=== PATIENT | female | born 1985 | race Caucasian/White ===

== ENCOUNTER 2020-03-04 10:11 | Emergency (ER) | payer BC, OTHER ==
--- NOTE | 2020-03-04 12:04 | ER ---
Nurse's Notes [facility] Name: Anna Up Age: 34 yrs Sex: Female : 1985 Arrival Date: 03/04/2020 Time: 10:16 Bed 17 Private MD: out of town, doctor Diagnosis: Fecal impaction;Low back pain Presentation: 03/04 10:33 Chief complaint: Patient states: had a CT yesterday and is impacted, was told if she iw hadn't passed stool in 24 hours or has increasing pain to come to ER, was seen by a doctor out of [place]. Coronavirus screen: Proceed with normal triage. Patient denies a cough. Patient denies shortness of breath or difficulty breathing. Patient denies measured and/or subjective temperature greater than 100.4F prior to today's visit. Patient denies travel on a cruise ship or to a country the [facility] currently lists as an affected area. Patient denies contact with known and/or suspected case of COVID-19. Ebola Screen: Patient negative for fever greater than or equal to 101.5 degrees Fahrenheit, and additional compatible Ebola Virus Disease symptoms Patient denies exposure to infectious person. Patient denies travel to an Ebola-affected area in the 21 days before illness onset. No symptoms or risks identified at this time. Initial Sepsis Screen: Does the patient meet any 2 criteria? No. Patient's initial sepsis screen is negative. Does the patient have a suspected source of infection? No. Patient's initial sepsis screen is negative. Risk Assessment: Do you want to hurt yourself or someone else? Patient reports no desire to harm self or others. Onset of symptoms was February 29, 2020. 10:33 Method Of Arrival: Ambulatory iw 10:33 Acuity: MANDY 3 iw Triage Assessment: 10:47 General: Appears in no apparent distress. comfortable, obese, Behavior is cooperative, bp appropriate for age, anxious. Pain: Complains of pain in abdomen. EENT: No deficits noted. Neuro: No deficits noted. Cardiovascular: No deficits noted. Respiratory: No deficits noted. GI: Reports constipation. : No signs and/or symptoms were reported regarding the genitourinary system. Derm: No deficits noted. Musculoskeletal: No deficits noted. 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 - Social history:: Smoking status: Patient denies any tobacco usage or history of. - Family history:: not pertinent. Screenin:48 Abuse screen: Denies threats or abuse. Denies injuries from another. Nutritional bp screening: No deficits noted. Tuberculosis screening: No symptoms or risk factors identified. Fall Risk None identified. Assessment: 10:48 General: SEE TRIAGE NOTE. bp 11:34 Reassessment: SOAP SUDS ENEMA IN PROCESS. PT TBDC AFTER COMPLETION. bp 11:44 Reassessment: PT HAD SUCCESSFUL BM, PROVIDER NOTIFIED. bp 12:10 Reassessment: D/C ON HOLD FOR REMAINING 500CC SOAP SUDS ENEMA. bp 12:46 Reassessment: Patient appears in no apparent distress at this time. Patient and/or iw family updated on plan of care and expected duration. Pain level reassessed. Patient is alert, oriented x 3, equal unlabored respirations, skin warm/dry/pink. Vital Signs: 10:33 BP 130 / 90; Pulse 72; Resp 16; Temp 97.7; Pulse Ox 100% on R/A; Weight 72.57 kg; iw Height 5 ft. 10 in. (177.80 cm); Pain 7/10; 11:48 BP 127 / 85; Pulse 78; Resp 16; Pulse Ox 100% ; bp 10:33 Body Mass Index 22.96 (72.57 kg, 177.80 cm) iw ED Course: 10:16 Patient arrived in ED. mr 10:16 out of town, doctor is Private Physician. mr 10:35 Triage completed. iw 10:37 Arm band placed on. iw 10:46 Malcolm Reynoso, RN is Primary Nurse. bp 10:46 Tyrese De Jesus DO is Attending Physician. ms3 10:48 Patient has correct armband on for positive identification. Bed in low position. Call bp light in reach. Side rails up X2. 11:[address] Arroyo and connected with Dr. De Jesus for patient eb consultation. 11:02 Warm blanket given. Pulse ox on. NIBP on. 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 mh5 11:35 Soap suds enema given. 5 12:46 Patient did not have IV access during this emergency room visit. iw Administered Medications: No medications were administered Outcome: 12:04 Discharge ordered by MD. ms3 12:46 Discharged to home ambulatory. iw 12:46 Condition: good 12:46 Discharge instructions given to patient, Instructed on discharge instructions, follow up and referral plans. medication usage, Demonstrated understanding of instructions, follow-up care, medications, Prescriptions given X 1. 12:46 Patient left the ED. iw Signatures: Christianne Kirk Irene, RN RN Tenisha Bo [facility] Malcolm Reynoso, RN RN Betty Alex Marcus, DO DO ms3
--- NOTE | 2020-03-04 12:05 | EDPHYS ---
Physician Documentation [facility] Name: Anna Up Age: 34 yrs Sex: Female : 1985 Arrival Date: 03/04/2020 Time: 10:16 Bed 17 Private MD: out of town, doctor ED Physician Tyrese De Jesus HPI: 03/04 11:04 This 34 yrs old Female presents to ER via Ambulatory with complaints of ms3 Constipation. 11:04 34 year old female presents stating she had a CT scan showing fecal impaction performed ms3 yesterday. Her provider, Mae Gonzalez, suggested she go to the ED for continued constipation and back pain.. Onset: The symptoms/episode began/occurred 1 month(s) ago. Severity of symptoms: in the emergency department the symptoms are unchanged. 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 - Social history:: Smoking status: Patient denies any tobacco usage or history of. - Family history:: not pertinent. ROS: 11:04 Constitutional: Negative for fever, and chills. Eyes: Negative for injury, pain, ms3 redness, and discharge, Neck: Negative for injury, pain, and swelling, Cardiovascular: Negative for chest pain, and palpitations. Respiratory: Negative for shortness of breath, cough, wheezing, and pleuritic chest pain, Abdomen/GI: Negative for abdominal pain, nausea, vomiting, diarrhea, and constipation, Back: Negative for injury and pain, MS/Extremity: Negative for injury and deformity, Skin: Negative for injury, rash, and discoloration. 11:04 Back: Positive for Negative for injury or acute deformity, decreased range of motion. Exam: 11:04 Constitutional: This is a well developed, well nourished patient who is awake, alert, ms3 and in no acute distress. Head/Face: Normocephalic, atraumatic. Eyes: Pupils equal round and reactive to light, extra-ocular motions intact. Lids and lashes normal. Conjunctiva and sclera are non-icteric and not injected. Cornea within normal limits. Periorbital areas with no swelling, redness, or edema. Neck: Trachea midline, no cervical lymphadenopathy. Supple, full range of motion without nuchal rigidity, or vertebral point tenderness. No Meningismus. Chest/axilla: Normal chest wall appearance and motion. Nontender with no deformity. Cardiovascular: Regular rate and rhythm with a normal S1 and S2. No gallops, murmurs, or rubs. Normal PMI, no JVD. No pulse deficits. Respiratory: Lungs have equal breath sounds bilaterally, clear to auscultation and percussion. No rales, rhonchi or wheezes noted. No increased work of breathing, no retractions or nasal flaring. Abdomen/GI: Soft, non-tender, with normal bowel sounds. No distension or tympany. No guarding or rebound. No evidence of tenderness throughout. Back: No spinal tenderness. No costovertebral tenderness. Full range of motion. 11:04 Abdomen/GI: Rectal exam: is unremarkable, rectal tone normal, Stool: the exam is chaperoned by the nurse, Empty vault. Vital Signs: 10:33 BP 130 / 90; Pulse 72; Resp 16; Temp 97.7; Pulse Ox 100% on R/A; Weight 72.57 kg; iw Height 5 ft. 10 in. (177.80 cm); Pain 7/10; 11:48 BP 127 / 85; Pulse 78; Resp 16; Pulse Ox 100% ; bp 10:33 Body Mass Index 22.96 (72.57 kg, 177.80 cm) iw MDM: 10:52 Patient medically screened. ms3 11:04 Data reviewed: diagnostic data from outside facility, Reviewed outside Abd/ Pelvis CT ms3 report that showed fecal impaction.. 12:01 Counseling: I had a detailed discussion with the patient and/or guardian regarding: the ms3 historical points, exam findings, and any diagnostic results supporting the discharge/admit diagnosis, the need for outpatient follow up, a family practitioner, to return to the emergency department if symptoms worsen or persist or if there are any questions or concerns that arise at home. ED course: Pt had liquid bowel movement after soap suds enema. Will give pt additional 500 ml of enema. Discussed GoLytle with pt and she agrees with plan. Pt to follow up with her PMD in 2-3 days. Pt understands/ agrees with plan. All questions answered. Return precautions discussed. Pt a/o x4, nad, non-toxic, ambulatory in ED, no neuro deficits.. 03/04 11:02 Order name: Brandyn. Order: Soap Suds enema; Complete Time: 11:35 ms3 Administered Medications: No medications were administered Disposition: 03/04/20 12:04 Discharged to Home. Impression: Fecal impaction, Low back pain. - Condition is Stable. - Discharge Instructions: Fecal Impaction. - Prescriptions for Golytely - take 240 milliliter by ORAL route every 10 minutes for 1 day; 4 Liter. - Medication Reconciliation Form, Thank You Letter, Antibiotic Education, Prescription Opioid Use form. - Follow up: Private Physician; When: 2 - 3 days; Reason: Re-evaluation by your physician. Signatures: Zari Villegas RN RN iw Tyrese De Jesus DO DO ms3 Corrections: (The following items were deleted from the chart) 12:46 12:04 03/04/2020 12:04 Discharged to Home. Impression: Fecal impaction; Low back pain. iw Condition is Stable. Forms are Medication Reconciliation Form, Thank You Letter, Antibiotic Education, Prescription Opioid Use. Follow up: Private Physician; When: 2 - 3 days; Reason: Re-evaluation by your physician. ms3
[2020-03-04 12:53] VITALS: TEMP 97.7; O2SAT 100
[2020-03-04 12:54] VITALS: BP 127/85
== END 2020-03-04 12:46 | disposition home or self-care (01) ==
LOC: ER 10:11
DX: K56.41 Fecal impaction (principal); E03.9 Hypothyroidism, unspecified; Z88.0 Allergy status to penicillin; Z88.1 Allergy status to other antibiotic agents; Z91.048 Other nonmedicinal substance allergy status
CPT/HCPCS: 99284

== ENCOUNTER 2021-06-17 20:41 | Emergency (ER) | payer BC ==
--- NOTE | 2021-06-17 22:11 | RAD REPORT ---
EXAM DESCRIPTION: RAD - Foot Left 3 View - 06/17/2021 10:01 pm CLINICAL HISTORY: PAIN COMPARISON: No comparisons FINDINGS: No left foot fractures identified. No malalignment. There is some nonspecific irregularity of the medial anterior aspect of the navicular which this is felt to be related to chronic degenerat royce changes. IMPRESSION: No left foot fracture identified.
--- NOTE | 2021-06-18 01:12 | ER ---
Nurse's Notes [facility] Name: Anna Up Age: 35 yrs Sex: Female : 1985 Arrival Date: 06/17/2021 Time: 20:42 Bed 10 Private MD: Diagnosis: Sprain of foot-left Presentation: 06/17 21:19 Chief complaint: Patient states: Left foot pain. Coronavirus screen: Client denies kg travel out of the [place] in the last 14 days. At this time, unable to obtain information related to travel outside the [place] At this time, the client does not indicate any symptoms associated with coronavirus-19. Ebola Screen: Patient negative for fever greater than or equal to 101.5 degrees Fahrenheit, and additional compatible Ebola Virus Disease symptoms Patient denies exposure to infectious person. Patient denies travel to an Ebola-affected area in the 21 days before illness onset. Initial Sepsis Screen: Does the patient meet any 2 criteria? No. Patient's initial sepsis screen is negative. Does the patient have a suspected source of infection? No. Patient's initial sepsis screen is negative. Risk Assessment: Do you want to hurt yourself or someone else? Patient reports no desire to harm self or others. Onset of symptoms was June 17, 2021 at 20:00. 21:19 Method Of Arrival: Wheelchair kg 21:19 Acuity: MANDY 4 kg Triage Assessment: 21:20 General: Appears in no apparent distress. Behavior is calm, cooperative, appropriate kg for age, quiet. Pain: Complains of pain in left foot. Musculoskeletal: Reports numbness in left foot pain in left foot Pain is 6 out of 10 on a pain scale. Injury Description: Pt was playing volleyball and dove to get a ball and fell hurting her foot. 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 - Social history:: Smoking status: Patient denies any tobacco usage or history of. Patient uses alcohol, occasionally. Screenin:20 Abuse screen: Denies threats or abuse. Denies injuries from another. Nutritional kg screening: No deficits noted. Tuberculosis screening: No symptoms or risk factors identified. Fall Risk None identified. Assessment: 06/18 01:35 Pain: Complains of pain in right foot. ms4 01:36 Neuro: No deficits noted. Cardiovascular: No deficits noted. Respiratory: No deficits ms4 noted. 01:36 Reassessment: Patient appears in no apparent distress at this time. No changes from ms4 previously documented assessment. Patient and/or family updated on plan of care and expected duration. Pain level reassessed. General: Appears in no apparent distress. Vital Signs: 06/17 21:19 BP 103 / 67; Pulse 82; Resp 20; Temp 98.7(O); Pulse Ox 100% on R/A; Weight 74.39 kg kg (R); Height 5 ft. 10 in. (177.80 cm) (R); Pain 6/10; 21:19 Body Mass Index 23.53 (74.39 kg, 177.80 cm) kg ED Course: 20:42 Patient arrived in ED. as 21:20 Triage completed. kg 21:20 Arm band placed on left wrist. kg 21:23 No provider procedures requiring assistance completed. kg 22:01 XRAY Foot LEFT 3 View In Process Unspecified. EDMS 06/18 00:23 Pop Higuera PA is PHCP. cp 00:23 Patrice Birch MD is Attending Physician. cp 01:11 Rene Mclean MD is Referral Physician. cp 01:35 Patient has correct armband on for positive identification. ms4 01:35 Patient did not have IV access during this emergency room visit. ms4 Administered Medications: 01:32 Drug: Ibuprofen 800 mg Route: PO; ms4 01:32 Follow up: Response: No adverse reaction ms4 01:32 Drug: Tylenol 1000 mg Route: PO; ms4 01:32 Follow up: Response: No adverse reaction ms4 Outcome: 01:12 Discharge ordered by . cp 01:35 Discharged to home ambulatory, with crutches. ms4 01:35 Condition: stable 01:35 Discharge instructions given to patient, Instructed on discharge instructions, follow up and referral plans. Demonstrated understanding of instructions, follow-up care, medications, Prescriptions given X 1. 01:50 Patient left the ED. ms4 Signatures: Dispatcher [employer] EDTabby Schwab Corey, PA PA cp Graham, Kristen, RN RN kg Nubia Vargas RN RN ms4 Corrections: (The following items were deleted from the chart) 06/17 21:25 21:23 Home Meds: lactulose 10 gram/15 mL (15 mL) Oral soln; kg kg
--- NOTE | 2021-06-18 01:12 | EDPHYS ---
Physician Documentation [facility] Name: Anna Up Age: 35 yrs Sex: Female : 1985 Arrival Date: 06/17/2021 Time: 20:42 Bed 10 Private MD: ED Physician Patrice Birch HPI: 06/18 01:00 This 35 yrs old Female presents to ER via Wheelchair with complaints of Foot cp Injury. 01:00 The patient presents with an injury, pain, that is acute, numbness. The complaints cp affect the dorsum of left foot. Context: resulted from playing sports, while playing volleyball. Onset: The symptoms/episode began/occurred just prior to arrival. Patient reports she dove to strike a ball causing injury to her left foot. She believes she hyperflexed her left foot causing injury. Patient was seated in wheelchair and brought back. Reports difficulty bearing weight. Patient reports a head athletic trainer was on scene who reports that he felt like he relocated the bones in her foot.. 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 - Social history:: Smoking status: Patient denies any tobacco usage or history of. Patient uses alcohol, occasionally. ROS: 06/18 01:05 MS/extremity: Positive for pain, paresthesias, of the dorsum of left foot, Negative for cp decreased range of motion, deformity. 01:05 Constitutional: Negative for body aches, chills, fever. cp 01:05 Neck: Negative for pain with movement, pain at rest, stiffness. 01:05 Cardiovascular: Negative for chest pain. 01:05 Respiratory: Negative for cough, shortness of breath, wheezing. 01:05 Abdomen/GI: Negative for abdominal pain. 01:05 Back: Negative for pain at rest, pain with movement. 01:05 All other systems are negative. Exam: 01:07 Constitutional: The patient appears in no acute distress, alert, awake, well developed, cp well nourished, uncomfortable. 01:07 Head/Face: Normocephalic, atraumatic. cp 01:07 Neck: ROM/movement: is normal, is supple, without pain, no range of motions limitations. 01:07 Chest/axilla: Inspection: normal. 01:07 Cardiovascular: Rate: normal. 01:07 Respiratory: the patient does not display signs of respiratory distress, Respirations: normal. 01:07 Back: pain, is absent. 01:07 Musculoskeletal/extremity: Extremities: grossly normal except: noted in the dorsum of left foot: pain, swelling, tenderness, noted to dorsum of right foot, There is no evidence of deformity, injury to Achilles tendon, Pulses: noted to be 2+ in the left dorsalis pedis artery. Vital Signs: 06/17 21:19 BP 103 / 67; Pulse 82; Resp 20; Temp 98.7(O); Pulse Ox 100% on R/A; Weight 74.39 kg kg (R); Height 5 ft. 10 in. (177.80 cm) (R); Pain 6/10; 21:19 Body Mass Index 23.53 (74.39 kg, 177.80 cm) kg MDM: 06/18 00:23 Patient medically screened. cp 01:10 Data reviewed: vital signs, nurses notes, radiologic studies, plain films. cp 01:10 Differential diagnosis: dislocation, tendon rupture, fracture. Test interpretation: by ED physician or midlevel provider: xrays of left foot negative for fracture. Counseling: I had a detailed discussion with the patient and/or guardian regarding: the historical points, exam findings, and any diagnostic results supporting the discharge/admit diagnosis, radiology results, the need for outpatient follow up, a orthopedic surgeon, to return to the emergency department if symptoms worsen or persist or if there are any questions or concerns that arise at home. Response to treatment: the patient's symptoms have markedly improved after treatment, and as a result, I will discharge patient. 06/17 21:18 Order name: XRAY Foot LEFT 3 View; Complete Time: 22:55 kg 06/18 00:59 Order name: Walking boot; Complete Time: 01:32 cp 06/18 00:59 Order name: Crutches; Complete Time: :32 cp Administered Medications: 01:32 Drug: Ibuprofen 800 mg Route: PO; ms4 01:32 Follow up: Response: No adverse reaction ms4 01:32 Drug: Tylenol 1000 mg Route: PO; ms4 01:32 Follow up: Response: No adverse reaction ms4 Disposition: 01:20 Chart complete. cp 01:58 Co-signature as Attending Physician, Patrice Birch MD. pkl Disposition Summary: 06/18/21 01:12 Discharge Ordered Location: Home cp Problem: new cp Symptoms: have improved cp Condition: Stable cp Diagnosis - Sprain of foot - left cp Followup: cp - With: Rene Mclean MD - When: 2 - 3 days - Reason: Worsening of condition Discharge Instructions: - Discharge Summary Sheet cp - Foot Sprain cp - RICE Therapy for Routine Care of Injuries cp Forms: - Medication Reconciliation Form cp - Thank You Letter cp - Antibiotic Education cp - Prescription Opioid Use cp Prescriptions: - Diclofenac Sodium 75 mg Oral Tablet Sustained Release - take 1 tablet by ORAL route 2 times per day; 30 tablet; Refills: 0, Product cp Selection Permitted Signatures: Dispatcher [employer] EDMS Patrice Birch MD MD pkl Pop Higuera PA PA cp Rosina Thompson, MISSY RN kg Nubia Vargas RN RN ms4 Corrections: (The following items were deleted from the chart) 06/17 21:25 21:23 Home Meds: lactulose 10 gram/15 mL (15 mL) Oral soln; kg kg 06/19 00:54 06/18 01:05 MS/extremity: Positive for pain, of the right foot, Negative for decreased cp range of motion, deformity, cp 06/19 00:55 06/18 01:07 Musculoskeletal/extremity: Extremities: grossly normal except: noted in the cp right foot: pain, swelling, tenderness, noted to dorsum of right foot, There is no evidence of deformity, injury to Achilles tendon, Pulses: noted to be 2+ in the right dorsalis pedis artery, cp
[2021-06-18] MEDS ORDERED: ACETAMINOPHEN 500 MG TAB ONE (01:51)
[2021-06-18] MEDS ORDERED: IBUPROFEN 400 MG TAB ONE (01:51)
[2021-06-18 01:56] VITALS: BP 103/67; TEMP 98.7; O2SAT 100
== END 2021-06-18 01:50 | disposition home or self-care (01) ==
LOC: ER 20:41
DX: S93.602A Unspecified sprain of left foot, initial encounter (principal); Y93.68 Activity, volleyball (beach) (court); E03.9 Hypothyroidism, unspecified; Z88.0 Allergy status to penicillin; Z88.1 Allergy status to other antibiotic agents; Z91.048 Other nonmedicinal substance allergy status
CPT/HCPCS: 99283